=== PATIENT | female | born 1970 | race Caucasian/White ===

== ENCOUNTER 2016-12-22 02:13 | Emergency (ER) | payer OTHER ==
[~2016-12-22] VITALS: Ht 162.6 cm; Wt 113.4 kg
[2016-12-22 05:49] VITALS: BP 144/84
== END 2016-12-22 05:49 | disposition home or self-care (01) ==
LOC: ED 02:13
DX: R51 Headache (principal); R04.0 Epistaxis; I10 Essential (primary) hypertension
CPT/HCPCS: J2270; Q0162